=== PATIENT | female | born 1995 | race Caucasian/White ===

== ENCOUNTER 2020-02-03 06:52 | Emergency (ER) | payer SELFPAY ==
[~2020-02-03] VITALS: Ht 160 cm; Wt 51.9 kg
[2020-02-03 06:56] VITALS: BP 123/90
--- NOTE | 2020-02-03 07:11 | NUR ---
PT BIB SELF C/O LOWER ABD PAIN ACCOMPANIED WITH NAUSEA AND 1 EPISODE OF NON-BLOODY EMESIS. PT REPORTS PAIN WOKE HER UP AT 04:00 AND WAS RADIATING ACROSS HER UPPER ABD AND PAIN HAS SINCE MOVED TO LOWER QUADRANT. ABD IS SOFT, FLAT, TENDER IN RLQ.
--- NOTE | 2020-02-03 07:23 | NUR ---
REPORT TO [facility]
--- NOTE | 2020-02-03 07:35 | NUR ---
URINE OBTAINED, URINE DIP CHARTED AND RESULTS TO HCG POC NEGATIVE
--- NOTE | 2020-02-03 08:05 | NUR ---
MD AT BEDSIDE TO EVALUATE PATIENT
[2020-02-03] MEDS ORDERED: FAMOTIDINE 20 MG TAB PO ONE (08:10)
--- NOTE | 2020-02-03 08:14 | NUR ---
BIB SELF FROM HOME VIA URGENT CARE WITH C/O ABD PAIN A, A, OX4, COOPERATIVE, PAIN 8/10 VVS, IN NAD, RESP EVEN AND UNLABORED MOVING ALL EXTS W/O DIFFICULTY WILL CONTINUE TO MONITOR
[2020-02-03 09:11] LABS: BASOPHILS % (AUTO) 0.2 % (0.0-2.0); EOSINOPHILS % (AUTO) 0.1 % (0.0-4.0); HEMATOCRIT 36.7 % (36-48); HEMOGLOBIN 12.1 g/dL (12.0-16.0); LYMPHOCYTES % (AUTO) 7.9 % (20.5-51.1); MEAN CORPUSCULAR HEMOGLOBIN 29 pg (27-31); MEAN CORPUSCULAR HGB CONC 33 g/dL (33-37); MEAN CORPUSCULAR VOLUME 87.2 fL (80-94); NEUTROPHILS # (AUTO) 10.2 K/uL (1.8-7.7); NEUTROPHILS % (AUTO) 83.8 % (42.2-75.2); PLATELET COUNT (AUTO) 269 K/uL (140-450); RED BLOOD CELL COUNT(AUTO) 4.21 MIL/uL (4.20-5.40); RED CELL DISTRIBUTION WIDTH 15.2 % (11.6-13.7); WHITE BLOOD COUNT (AUTO) 12.1 K/uL (4.8-10.8)
[2020-02-03 09:33] LABS: ALBUMIN 4.1 g/dL (3.4-5.0); ANION GAP 15.6 (8-16); CARBON DIOXIDE 22.8 mmol/L (21-32); CREATININE 0.7 mg/dL (0.6-1.3); POTASSIUM 3.4 mmol/L (3.5-5.1); TOTAL BILIRUBIN 0.5 mg/dL (0.0-1.0)
[2020-02-03 10:05] VITALS: BP 114/80
--- NOTE | 2020-02-03 10:05 | NUR ---
Patient discharged with v/s stable. Written and verbal after care instructions about gastritis and abdominal pain given and explained. Patient alert, oriented and verbalized understanding of instructions. Ambulatory with steady gait. All questions addressed prior to discharge. ID band removed. Patient advised to follow up with PMD. Rx of zofran, pepcid, acetaminophen given. Patient educated on indication of medication including possible reaction and side effects. Opportunity to ask questions provided and answered.
== END 2020-02-03 10:05 | disposition home or self-care (01) ==
LOC: MED 06:52
DX: K29.70 Gastritis, unspecified, without bleeding (principal); R11.10 Vomiting, unspecified; K21.9 Gastro-esophageal reflux disease without esophagitis
CPT/HCPCS: 36415; 80053; 81002; 81025; 83690; 85025; 99283